=== PATIENT | female | born 1990 | race African-American/Black ===

== ENCOUNTER 2018-08-06 01:24 | Emergency (ER) | payer MEDICAID ==
[~2018-08-06] VITALS: Ht 157.5 cm; Wt 68.0 kg
[~2018-08-06 01:24] MED LIST: CIPR-259 PO
[2018-08-06] MEDS ORDERED: normal saline 1000ML IV soln IVB ONE (04:40)
[2018-08-06 05:22] LABS: EOSINOPHILS # (AUTO) 0.2 X10'3 (0-0.9); LYMPHOCYTES # (AUTO) 4.6 X10'3 (1.1-4.8); MONOCYTES # (AUTO) 0.5 X10'3 (0-0.9); NEUTROPHILS # (AUTO) 2.8 X10'3 (1.8-7.7); WHITE BLOOD COUNT 8.2 X10'3 (4.5-11.0)
[2018-08-06 05:22] LABS: URINE HCG NEGATIVE (NEG)
[2018-08-06 05:24] LABS: BASOPHILS # (AUTO) 0.2 X10'3 (0-0.2); EOSINOPHILS % (AUTO) 2.4 % (0-6); HEMATOCRIT 35.9 % (35.0-45.0); HEMOGLOBIN 11.4 g/dl (12.0-16.0); LYMPHOCYTES % (AUTO) 56.2 % (21-51); MEAN CORPUSCULAR HEMOGLOBIN 21.2 PG (27.0-31.0); MEAN CORPUSCULAR HGB CONC 31.8 g/dL (33.0-36.5); MEAN CORPUSCULAR VOLUME 66.7 FL (78-98); MEAN PLATELET VOLUME 7.3 FL (7.4-10.4); MONOCYTES % (AUTO) 5.8 % (2-12); NEUTROPHILS % (AUTO) 33.6 % (42-75); PLATELET COUNT 416 X10'3 (140-440); RED BLOOD COUNT 5.39 X10'6 (4.20-5.60); RED CELL DISTRIBUTION WIDTH 18.2 % (11.5-14.5)
[2018-08-06 05:25] LABS: CLARITY,URINE CLEAR (Clear); COLOR,URINE YELLOW (Yellow); GLUCOSE, URINE NEGATIVE (Neg); KETONES,URINE NEGATIVE (Neg); LEUKOCYTE ESTERASE ,URINE NEGATIVE (Neg); NITRITES, URINE NEGATIVE (Neg); OCCULT BLOOD,URINE NEGATIVE (Neg); PROTEIN,URINE NEGATIVE (Neg); UROBILINOGEN,URINE 0.2 E.U/dL (0.2-1.0)
[2018-08-06 05:26] LABS: UA COLLECTION TYPE CLN CATCH MIDSTREAM
[2018-08-06 05:34] LABS: ALANINE AMINOTRANSFERASE 37 U/L (12-78); ALKALINE PHOSPHATASE 49 IU/L (46-116); ANION GAP 8 (8-16); ASPARTATE AMINO TRANSFERASE 17 U/L (10-37); BILIRUBIN,TOTAL 0.2 MG/DL (0.1-1.0); BLOOD UREA NITROGEN 14 MG/DL (7-18); BUN/CREATININE RATIO 18.9 (6.6-38.0); CALCIUM 9.3 MG/DL (8.5-10.1); CHLORIDE 105 MMOL/L (99-107); CREATININE 0.74 MG/DL (0.40-0.90); GLUCOSE 82 MG/DL (70-104); LIPASE 112 U/L (73-393); POTASSIUM 3.4 MMOL/L (3.5-5.1); SODIUM 140 MMOL/L (135-145); TOTAL CARBON DIOXIDE 27.5 MMOL/L (24-32); TOTAL PROTEIN 8.1 G/DL (6.4-8.2); eGFR > 90 ML/MIN
[2018-08-06 06:08] LABS: ANISOCYTOSIS 1+; GIANT PLATELET FEW; LARGE PLATELETS FEW; MICROCYTOSIS 2+; PLATELET ESTIMATE NORMAL; TOTAL CELLS COUNTED 100
[2018-08-06 06:09] LABS: HYPOCHROMASIA 1+
[2018-08-06] MEDS ORDERED: OMEP40CA37 PO (06:15)
[2018-08-06 06:40] VITALS: BP 105/68
[2018-08-06] MEDS ORDERED: pantoprazole 40mg Tablet.DR PO SCH (07:30)
== END 2018-08-06 06:42 | disposition home or self-care (01) ==
LOC: ER 01:25
DX: R10.10 Upper abdominal pain, unspecified (principal); R10.13 Epigastric pain; J45.909 Unspecified asthma, uncomplicated; Z88.5 Allergy status to narcotic agent; Z88.6 Allergy status to analgesic agent; Z79.899 Other long term (current) drug therapy
CPT/HCPCS: 36415; 80053; 81003; 81025; 83690; 85025; 99283; J7030

== ENCOUNTER 2021-09-21 04:17 | Emergency (ER) | payer MEDICAID ==
[~2021-09-21] VITALS: Ht 160 cm; Wt 94.1 kg
[2021-09-21 04:20] VITALS: BP 114/74
[2021-09-21] MEDS ORDERED: FAMO40TA7 PO (05:21)
[2021-09-21] MEDS ORDERED: PROP20TA6 PO (05:21)
[2021-09-21] MEDS ORDERED: FEXO-236 PO (05:21)
[2021-09-21] MEDS ORDERED: CYCL-1 PO (05:21)
[2021-09-21] MEDS ORDERED: PROC10TA10 (05:21)
[2021-09-21] MEDS ORDERED: BACL20TA PO (05:21)
[2021-09-21] MEDS ORDERED: TOP100T PO (05:21)
[2021-09-21] MEDS ORDERED: DICY20TA2 PO (05:21)
[2021-09-21] MEDS ORDERED: AMIT50TA11 PO (05:21)
[2021-09-21 05:54] LABS: URINE HCG NEGATIVE (NEG)
[2021-09-21 06:57] LABS: BASOPHILS # (AUTO) 0.1 X10'3 (0-0.2); EOSINOPHILS # (AUTO) 0.1 X10'3 (0-0.9); EOSINOPHILS % (AUTO) 1.9 % (0-6); HEMATOCRIT 37.1 % (35.0-45.0); HEMOGLOBIN 12.3 g/dl (12.0-16.0); LYMPHOCYTES # (AUTO) 2.6 X10'3 (1.1-4.8); LYMPHOCYTES % (AUTO) 34.9 % (21-51); MEAN CORPUSCULAR HEMOGLOBIN 26.3 PG (27.0-31.0); MEAN CORPUSCULAR VOLUME 79.7 FL (78-98); MONOCYTES # (AUTO) 0.5 X10'3 (0-0.9); MONOCYTES % (AUTO) 6.9 % (2-12); NEUTROPHILS # (AUTO) 4.1 X10'3 (1.8-7.7); NEUTROPHILS % (AUTO) 55.3 % (42-75); PLATELET COUNT 313 X10'3 (140-440); RED BLOOD COUNT 4.66 X10'6 (4.20-5.60); WHITE BLOOD COUNT 7.4 X10'3 (4.5-11.0)
[2021-09-21 07:05] LABS: ALANINE AMINOTRANSFERASE 98 U/L (12-78); ALBUMIN 3.3 G/DL (3.4-5.0); ALBUMIN/GLOBULIN RATIO 0.8 (1.1-1.5); ALKALINE PHOSPHATASE 64 IU/L (46-116); ANION GAP 8 (8-16); ASPARTATE AMINO TRANSFERASE 17 U/L (10-37); BILIRUBIN,TOTAL 0.2 MG/DL (0.1-1.0); BLOOD UREA NITROGEN 10 MG/DL (7-18); CALCIUM 8.7 MG/DL (8.5-10.1); CHLORIDE 107 MMOL/L (99-107); CREATININE 0.91 MG/DL (0.40-0.90); GLUCOSE 108 MG/DL (70-104); POTASSIUM 3.8 MMOL/L (3.5-5.1); SODIUM 140 MMOL/L (135-145); TOTAL CARBON DIOXIDE 24.7 MMOL/L (24-32); TOTAL PROTEIN 7.5 G/DL (6.4-8.2); eGFR 87 ML/MIN
[2021-09-21 07:12] LABS: BETA HCG,QUANTITATIVE < 1.0 mIU/ml; LIPASE 63 U/L (73-393)
[2021-09-21] MEDS ORDERED: BACI28OI9 TP (07:37)
== END 2021-09-21 08:13 | disposition home or self-care (01) ==
LOC: ER 04:18
DX: G89.29 Other chronic pain (principal); R10.9 Unspecified abdominal pain; Z88.5 Allergy status to narcotic agent; Z88.6 Allergy status to analgesic agent; Z88.8 Allergy status to other drugs, medicaments and biological substances
CPT/HCPCS: 36415; 80053; 81025; 82140; 83690; 84702; 85025; 85610; 99283; J7030

== ENCOUNTER 2024-08-14 16:09 | Emergency (ER) | payer MEDICAID ==
[~2024-08-14] VITALS: Ht 154.9 cm; Wt 77.7 kg
[~2024-08-14 16:09] MED LIST changes: +BACI28OI9 TP; +BACL20TA PO; -CIPR-259 PO; +CYCL-1 PO; +DICY20TA2 PO; +FAMO40TA7 PO; +FEXO-236 PO; +PROC10TA97; +PROP20TA6 PO; +TOP100T PO; +[UNRECOGNIZED DRUG - CODE] PO
--- NOTE | 2024-08-14 18:18 | Physician Documentation ---
History of Present Illness ~ Chief Complaint: Constipation Stated Complaint: CANT USE THE BATHROOM Time Seen by MD: 18:15 Primary Medical Doctor: Dian Goodman HPI Patient presents to the emergency room with chief complaint of not being able to have a bowel movement for two weeks. Patient has history of irritable bowel syndrome emphasis constipation is on Linzess. She is not on any pain medications. She has tried multiple [id number] remedies without relief. Her case is complicated because she has a prolapse of both her rectum and vagina which has worsened over the past four months. She feels that the prolapse is causing her inability to defecate. No fevers. Intermittent abdominal pain. Patient was seen at [facility] five days ago for the same complaint where a CT scan was performed which resulted in diagnosis of constipation and she states that she was told to follow up with her linux server engineer. Medication Reconciliation Allergies: Coded Allergies: acetaminophen (Verified Allergy, Intermediate, 09/21/21) hydrocodone bit (Verified Allergy, Intermediate, 09/21/21) NSAIDS (Non-Steroidal Anti-Inflamma (Unverified Allergy, Unknown, 08/14/24) baclofen (Unverified Allergy, Unknown, 08/14/24) gabapentin (Verified Allergy, Unknown, 09/21/21) hydrocodone (Unverified Allergy, Unknown, 08/14/24) iodine (Unverified Allergy, Unknown, 08/14/24) pregabalin (Verified Allergy, Unknown, 09/21/21) sumatriptan (Unverified Allergy, Unknown, 08/14/24) Uncoded Allergies: "ANESTHESIA" (Allergy, Severe, Hives, difficulty breathing, 08/06/18) States "I have to take Benadryl before they give it to me". NITROUS (Allergy, Severe, Difficulty breathing, 08/06/18) Scheduled Amitriptyline HCl (Amitriptyline HCl), 150 TAB PO HS, (Reported) Bacitracin/Pramoxine/Aloe Vera (Bacitracin Plus Ointment), 28 GM TP BID Bisacodyl (Dulcolax), 1 SUPP RC DAILY Cyclobenzaprine* (Cyclobenzaprine*), 1 TAB PO HS, (Reported) Dicyclomine HCl (Dicyclomine HCl), 1 CAP PO QID, (Reported) Docusate Sodium (Docusate Sodium), 2 CAP PO BID Famotidine (Famotidine), 1 TAB PO DAILY, (Reported) Fexofenadine HCl (Allergy Relief), 180 TAB PO DAILY, (Reported) Propranolol Hcl (Propranolol Hcl), 1 TAB PO BID, (Reported) Topiramate (Topamax), 1 TAB PO DAILY, (Reported) Scheduled PRN Baclofen (Baclofen), 1 TAB PO TID PRN for muscle, (Reported) Miscellaneous Medications Prochlorperazine Maleate (Prochlorperazine Maleate), (Reported) Past Medical History Past Medical History: Asthma, Anemia, UTI Past Surgical History: no surgical history Alcohol Use: None Drug Use: none Lives with: Family Lives In: Home Occupation: employed Review of Systems ROS All review of systems negative except as per HPI Physical Exam Vital Signs: Temperature: 97.4, Source: Temporal, Heart Rate: 86, Respiratory Rate: 16, BP: 106/63, Pulse Oximetry: 100, Weight: 77.700 Oxygen Flow Rate: 0 General Appearance General: Patient is awake, alert, oriented x4 in no acute distress Head: Normocephalic and atraumatic. Eyes: Conjunctival normal. EOMI. PERRL. ENT: Mucous membranes moist. Neck: Supple, trachea is midline. Chest: Clear to auscultation bilaterally without rales, rhonchi, or wheezes. There is no accessory muscle use or retractions. Cardiac: RRR without murmurs, gallops, or rubs. Abd: Soft, nondistended, nontender, with normoactive bowel sounds. No guarding, rebound, or rigidity. : Normal external female genitalia. Digital rectal exam shows no stool in rectal vault. No current prolapses Progress Progress Note Patient has shows me a picture of her prolapses of both her vagina and her rectum Results/Orders Results/Orders Orders - ЕКАТЕРИНА LANIER MD Normal Saline 1000ml (Sodium Chloride 10 (08/14/24 19:10) Cbc/Diff (08/14/24 19:09) Lipase (08/14/24 19:09) Urinalysis, Cult If Indicated (08/14/24 19:09) Hcg, Ur Ql (08/14/24 19:09) MG (08/14/24 19:09) General Nursing Order (08/14/24 19:09) Completed Orders - ЕКАТЕРИНА LANIER MD Bisacodyl Delayed-Release Tab (Dulcolax (08/14/24 19:10) Vital Signs 08/14/24 08/14/24 08/14/24 16:15 18:05 18:05 Temp 97.4 Pulse 98 86 Resp 16 16 16 B/P (MAP) 102/66 106/63 (77) Pulse Ox 99 100 O2 Flow Rate 0 0 Laboratory Tests Test 08/14/24 17:12 Glucometer 90 Medical Decision Making Findings Patient presents to the emergency room with rectal as well as vaginal prolapse and chief complaint of constipation. Differentials include but are not limited to constipation, dehydration, electrolyte disturbances, bowel obstruction. Offered to perform labs and imaging however patient is declining as she states he has just had this done at [facility]. Offered to do oral meds as well as enemas however she states she can do this at home but is requesting additional constipation medications for which I will provide her. She has been instructed to follow up with her linux server engineer tomorrow and educated on emergency precautions Departure Disposition: HOME / SELF CARE / HOMELESS Impression: Primary Impression: Constipation Additional Impressions: Rectal prolapse Vaginal prolapse Condition: Fair Discharge Instructions: Constipation, Adult Additional Instructions: Increase constipation medications until having bowel movements. Double your hydration efforts. Follow up with your linux server engineer tomorrow Referrals: NO PRIMARY CARE PROVIDER (PCP) Prescriptions Bisacodyl (Dulcolax) 10 Mg Supp.rect 1 SUPP RC DAILY for constipation for 10 Days, #10 SUPP 0 Refills Prov: ЕКАТЕРИНА LANIER MD 08/14/24 Docusate Sodium (Docusate Sodium) 100 Mg Caps 2 CAP PO BID, #60 CAP Prov: ЕКАТЕРИНА LANIER MD 08/14/24 Education Educated: Patient Educated regarding: diagnosis, treatment, need for follow up Signature Scribe Signature: No scribe Attestation: The note accurately reflects work and decisions made by me.Екатерина Lanier MD 08/14/24 19:20 ЕКАТЕРИНА LANIER MD Aug 14, 2024 18:18
[2024-08-14] MEDS ORDERED: bisacodyl 5mg tablet.DR PO ONE (19:10)
[2024-08-14] MEDS ORDERED: normal saline 1000ml 1,000 ML IV ONE (19:10)
[2024-08-14] MEDS ORDERED: BISA10SU64 RC (19:17)
[2024-08-14] MEDS ORDERED: DOCU100C40 PO (19:17)
[2024-08-14 19:32] VITALS: BP 134/80; PULSE 80; RESP 16; O2SAT 99
== END 2024-08-14 19:35 | disposition home or self-care (01) ==
LOC: ER 16:10
DX: K59.00 Constipation, unspecified (principal); K62.3 Rectal prolapse; N81.10 Cystocele, unspecified; J45.909 Unspecified asthma, uncomplicated; D64.9 Anemia, unspecified; Z88.6 Allergy status to analgesic agent; Z88.5 Allergy status to narcotic agent; Z88.8 Allergy status to other drugs, medicaments and biological substances; Z79.899 Other long term (current) drug therapy
CPT/HCPCS: 82948; 99282